=== PATIENT | male | born 1970 | race Caucasian/White ===

== ENCOUNTER 2024-01-23 22:49 | Inpatient (IN) | payer OTHER, SELFPAY ==
[2024-01-23 19:36] VITALS: BP 167/108
[2024-01-23 20:06] LABS: APTT 27.1 Sec (23.4-35.0); PT 13.2 Sec (11.4-14.6)
[2024-01-23 20:24] LABS: ALT (SGPT) 24 U/L (0-50); AST (SGOT) 27 U/L (17-59); Albumin 4.4 g/dl (3.5-5.0); Alkaline Phosphatase 62 U/L (38-126); Blood Urea Nitrogen 24 mg/dl (9-20); Calcium 9.4 mg/dl (8.4-10.2); Carbon Dioxide 26 mmol/L (22-30); Chloride 102 mmol/L (98-107); Glucose 103 mg/dl (70-99); Potassium 4.5 mmol/L (3.5-5.1); Sodium 140 mmol/L (135-145); Total Bilirubin 0.3 mg/dl (0.2-1.3); Total Protein 6.5 g/dl (6.3-8.2); eGFR > 60.00
[2024-01-23 20:57] LABS: % Basophils 0.3 % (0-2); % Eosinophils 1.4 % (0-6); % Immature Granulocytes 0.5 % (0-0.5); % Lymphocytes 24.6 % (20.5-51.1); % Monocytes 6.3 % (1.7-9.3); % Neutrophils 66.9 % (42.2-75.2); Absolute Eosinophils 0.1 10^3/uL (0-0.7); Absolute Lymphocytes 2.1 10^3/uL (1.2-3.4); Absolute Monocytes 0.5 10^3/uL (0.1-0.6); Absolute Neutrophils 5.8 10^3/uL (1.4-6.5); Hematocrit 31.3 % (39.0-52.0); Hemoglobin 11.6 g/dL (13.0-18.0); Mean Corp Hgb Conc. 37.1 g/dL (33.0-37.0); Mean Corpuscular Hgb 31.6 pg (27.0-31.0); Mean Corpuscular Volume 85.3 fL (80.0-94.0); Mean Platelet Volume 9.8 fL (7.4-10.4); Nucleated Red Blood Cells % 0 % (-); Platelet Count 209 10^3/uL (130-400); Red Blood Cell Count 3.67 10^6/uL (4.70-6.10); Red Cell Dist. Width 12.1 % (11.5-14.5); White Blood Cell Count 8.6 10^3/uL (4.8-10.8)
[2024-01-23 21:17] VITALS: BMI 31.3
--- NOTE | 2024-01-23 21:24 | ED.GENMED ---
History of Present Illness
General
Chief Complaint: Rectal Bleeding
Source: patient
Exam Limitations: none
Time Seen by Provider: 01/23/24 20:56
Nursing documentation reviewed up to this point in time: agreed with
History of Present Illness
History of Present Illness:
Patient to ED with complaint of passing black tarry stools since this AM. Has had muliple episodes. Denies any abdominal pain. No prior history of same. Brought self to ED for eval. PMH of diverticulitis. Dx with paraganglioma in 2018. Treated
at [facility]. States she had removal of tumor, bowel resection, temporary ileostomy. 2021 dx with adrenal gland cancer which was surgically treated at [facility]. He has had no issues since.
Past History
Past History
ED Past Medical History: Asthma, Cancer (paraganglioma, adrenal ), HTN, Hypercholesterolemia, Psychiatric (Anxiety, alcohol abuse, depression, suicidal ideation, suicide attempt) and Other (Diverticulitis)
ED Past Surgical History: Bowel resection
Social History
Tobacco: Former smoker
Alcohol: Former
Drug: Other (Recovering from opiate addiction)
Living: with family
Employment: Employed
Review of Systems
Review of Systems
Allergies reviewed?: Yes
All Other Systems: ROS reviewed and negative except as documented in HPI and ROS
Constitutional: Reports no symptoms
EENT: Reports no symptoms
Respiratory: Reports no symptoms
Cardiac: Reports no symptoms
ABD/GI: Reports black stools
: Reports no symptoms
Musculoskeletal: Reports no symptoms
Skin: Reports no symptoms
Neurological: Reports no symptoms
Psychiatric: Reports no symptoms
Phy Exam
General Physical Exam
General Presentation: well appearing and no apparent distress
General age: appears stated age
General Skin: warm and dry
General Habitus: normal
Gastrointestinal Exam
Gastrointestinal Exam: normal bowel sounds, non tender, soft, no organomegaly, no pulsatile mass, non distended and no cva tenderness
Rectal Exam: normal external exam, normal sphincter tone and soft stool
Stool: black
Guaiac Status: positive
Musculoskeletal Exam
Musculoskeletal Exam: full ROM and neuro vasc intact
Skin Exam
Skin Exam: normal color, warm/dry and no rash
Psychiatric Exam
Psychiatric Exam: normal mood/affect
Course
Orders/Labs/Results
Orders:
Orders
01/23/24 19:39
EKG [Electrocardiogram (*1)] Urgent
Reason for Study: Tachycardia
01/23/24 19:40
EKG- Treatment ONCE
01/23/24 19:49
Type+Screen Urgent
Complete Blood Count/With Diff Urgent
Comprehensive Metabolic Panel Urgent
PTT Urgent
Prothrombin Time Urgent
01/23/24 21:19
0.9% Sodium Chloride 1000 ml [Nss] 1,000 ml IV BOLUS
Pantoprazole [Protonix IV] 80 mg IV NOW STA
01/23/24 21:29
ABO2 Urgent
BBK Wristband Number:
Associate notified that ABO2 has been ordered: [id number]
Date: 01/23/24
Time: 20:07
Airport Duty Manager ID: [id number]
01/23/24 22:23
Admit/Transfer Patient As Directed
Co-Sign Provider:
Level of Care: Inpatient admission
Assign to:: Telemetry
Physician / Group: Patrick Park
Diagnosis: GI Bleed
Reason for Telemetry: Arrhythmia
Date to Stop Telemetry: 01/26/24
Time to Stop Telemetry: 11:00
Reason for Hospitalization: GI Bleed
Expected length of stay greater than two midnights?: Yes
ELOS- Estimated Length of Stay in days: 3
I certify the patient meets the requirements for IP care: Yes
01/23/24 22:24
PRN Pain Medication Management As Directed
May give lesser potent ordered pain med per pt: Yes
preference::
Protocol:: Medication orders for pain may be administered in a
manner that supports deferring to patient preference
when the pt is:
- Requesting an ordered lesser potent pain medication.
Least to most potent pain medications are defined
as: acetaminophen < NSAID < tramadol < opioids
(morphine, oxycodone, hydromorphone).
- Requesting a lesser dose of the same medication IF
ORDERED.
- Requesting a less intrusive route of administration
if both routes are prescribed by the provider (PO <
IV).
01/23/24 22:26
Code Status As Directed
Resuscitation Status: Full Code
01/26/24 11:00
DC Protocol for Telemetry ONCE
Abnormal Lab Results
01/23/24
19:49
RBC 3.67 L 10^6/uL
(4.70-6.10)
Hgb 11.6 L g/dL
(13.0-18.0)
Hct 31.3 L %
(39.0-52.0)
MCH 31.6 H pg
(27.0-31.0)
MCHC 37.1 H g/dL
(33.0-37.0)
BUN 24 H mg/dl
(9-20)
Glucose 103 H mg/dl
(70-99)
01/23/24 19:49
01/23/24 19:49
Vital Signs
Initial and Last Documented VS:
Initial Vital Signs
Temp Pulse Resp BP Pulse Ox
99 F 111 16 167/108 98
01/23/24 19:36 01/23/24 19:36 01/23/24 19:36 01/23/24 19:36 01/23/24 19:36
Last Documented Vital Signs
Temp Pulse Resp BP Pulse Ox
99 F 90 18 117/91 98
01/23/24 19:36 01/23/24 22:30 01/23/24 22:30 01/23/24 22:28 01/23/24 22:30
MDM/Problems Addressed
Differential Diagnosis Includes:
Patient to ED wt complaint of black tarry stools since this AM. No prior history of same. Denies any alcohol use, denies ibuprofen use. No prior history of same. Rectal exam confirms heme pos stool. Labs reviewed, Hgb/hct stable. WIll admit
to hospitalist service. IVF, protonix initieated in ED.
*Critical Care Note
Total Time (30-74mins, 75-104mins- exclusive of procedures): Not Applicable
ED Attending Note
-
Portions of this chart may have been created with voice recognition software.� Occasional wrong word or��sound alike� substitutions may have occurred due to the inherent limitations of voice recognition software.
Discharge Plan
Departure
Patient Disposition: Admit
Date of Disposition: 01/23/24
Time of Disposition: 21:35
Presentation/result/management discussed w/ accepting MD/DO: Hospitalist
Patient with high blood pressure during this ER visit?: No
Condition: Fair
Covid-19: Not Applicable
Discharge Problem:
GI bleeding
Interventions
Interventions:
*Risk Screen - Suicide Last Done: 01/23/24 19:36
*General Assessment Last Done: 01/23/24 21:17
*Neglect/Abuse Screening Last Done: 01/23/24 19:36
IE-Yhntgc-Korupmlcce Assessment Last Done: 01/23/24 21:17
ED- Cardiac Assessment Last Done: 01/23/24 21:17
ED- Pulmonary Assessment Last Done: 01/23/24 21:17
[2024-01-23 21:30] VITALS: BP 142/97
--- NOTE | 2024-01-23 21:40 | HPS.HSE ---
Family Physician
-
Family Physician:
Chief Complaint
-
Rectal bleeding
History of Present Illness
Patient is a 53-year-old male with past medical history significant for asthma, HTN, tumor resection [facility] in 2018 with colon resection and temporary ileostomy. Patient reports he woke this morning and had BM first thing at approximately 0630 where
he states he had a large 'pasty' dark bowel movement with fresh blood in water. He states he has had over 8 bowel movements today all similar. He denies any associated symptoms including, cough, shortness of breath, chest pain, abdominal discomfort,
urinary symptoms, nausea or vomiting. Patient denies any gastric reflux.
Medical History
Past Medical History
Past Medical History: Reports Other
Additional Past Medical History:
Diverticulitis
Paraganglioma
Asthma
HTN
Past Surgical History: Reports Other
Additional Past Surgical History:
Paraganglioma with colon resection and temporary ileostomy
Adrenalectomy
Social History
Tobacco: Former Smoker
Alcohol: Former
Drug: Former User
Personal: Single
Employment: Employed
Family History
Family History: Other (Pancreatic Cancer, Lung Cancer, pituitary gland tumor)
Allergies / Home Medications
Allergies reflects when Allergies were last updated in [facility].
Home Medications with original date entered in [facility]
Allergy/Medication List:
Allergies
Allergy/AdvReac Type Severity Reaction Status Date / Time
shellfish derived Allergy Unknown Verified 01/23/24 19:36
Home Medications Table - record
�Medication �Instructions �Recorded �Confirmed
ascorbic acid (vitamin C) 500 mg 1,000 mg PO DAILY 10/03/17 01/23/24
tablet (Vitamin C)
cholecalciferol (vitamin D3) 25 1,000 units PO DAILY 10/03/17 01/23/24
mcg (1,000 unit) tablet
montelukast 10 mg tablet 10 mg PO DAILY 10/03/17 01/23/24
Lactobac no.2-Bifidobac no.1-S. 1 cap PO DAILY 01/23/24 01/23/24
thermo 112.5 billion cell capsule
(Visbiome)
albuterol sulfate 90 mcg/actuation 2 puff inhalation R Q6HPRN PRN sob 01/23/24 01/23/24
aerosol inhaler
budesonide-formoterol HFA 80 2 puff inhalation R BIDPRN PRN 01/23/24 01/23/24
mcg-4.5 mcg/actuation aerosol change in season
inhaler (Symbicort)
calcium carbonate 500 mg PO DAILY 01/23/24 01/23/24
diphenhydramine 25 1 tab PO HSPRN PRN sleep 01/23/24 01/23/24
mg-acetaminophen 500 mg tablet
(Tylenol PM Extra Strength)
magnesium oxide 400 mg PO DAILY 01/23/24 01/23/24
omega 1-ttv-lsn-fish oil 1,000 mg 1 cap PO DAILY 01/23/24 01/23/24
(120 mg-180 mg) capsule (Fish Oil)
sildenafil 50 mg tablet 50 mg PO DAILYPRN PRN ed 01/23/24 01/23/24
therapeutic multivitamin 1 tab PO DAILY 01/23/24 01/23/24
vitamin B complex 1 tab PO DAILY 01/23/24 01/23/24
vitamin E 268 mg (400 unit) capsule 268 mg PO DAILY 01/23/24 01/23/24
Review of Systems
-
History Source: Patient
Constitutional: Reports No Symptoms
EENT: Reports No Symptoms
Respiratory: Reports No Symptoms
Cardiac: Reports No Symptoms
Abdomen/GI: Reports Bloody Stools
: Reports No Symptoms
Musculoskeletal: Reports No Symptoms
Skin: Reports No Symptoms
Neurological: Reports No Symptoms
Endocrine: Reports No Symptoms
Hematologic/Lymphatic: Reports No Symptoms
Psych: Reports No Symptoms
Physical Exam
Vital Signs
Vital Signs
Temp Pulse Resp BP Pulse Ox
99 F 89 18 142/97 98
01/23/24 19:36 01/23/24 21:30 01/23/24 21:30 01/23/24 21:30 01/23/24 21:30
Physical Exam
General: Well Developed, Well Nourished, No Apparent Distress, Comfortable and Conversant
HEENT: NormoCephalic, Moist mucous membranes, Atraumatic, PERRLA and Bronaugh Conjunctivae
Respiratory: Clear and Non Labored Respirations; No Wheezes, Rales, Rhonchi or Crackles
Cardiac: S1/S2 and Regular Rhythm; No Murmur, Rub or Gallop
Breast: Deferred by me
GI: Soft, Non Tender, Non Distended and Normal Bowel Sounds; No Organomegaly
Rectal: Hem Positive
Genito-urinary: Deferred by me
Musculoskeletal: No Clubbing, No Cyanosis, No Edema and Normal Gait & Station
Skin: Warm, Dry and IV/Catheter Site; No Rash
Neuro: Awake, Alert, AO x 3, Nonfocal/grossly intact and Cranial Nerves Intact
Hematologic/Lymphatic: No Lymphadenopathy
Psych: Calm and Intact Judgment/Insight
Laboratory Results
-
01/23/24 19:49
01/23/24 19:49
Laboratory Results
PT 13.2 Sec (11.4-14.6) 01/23/24 19:49
INR 1.00 01/23/24 19:49
APTT 27.1 Sec (23.4-35.0) 01/23/24 19:49
Total Bilirubin 0.3 mg/dl (0.2-1.3) 01/23/24 19:49
AST 27 U/L (17-59) 01/23/24 19:49
ALT 24 U/L (0-50) 01/23/24 19:49
Alkaline Phosphatase 62 U/L (38-126) 01/23/24 19:49
Data Reviewed
-
Lab Data: Labs Reviewed by me
Impression/Plan
-
IMPRESSION/PLAN:
#GI Bleed/Diverticulitis/Paraganglioma tumor removed 2017
- Admit to telemetry
- NPO Sips of clears
- Protonix BID
- T&S, H&H q4H
#Asthma
- Continue albuterol PRN
Full Code
DVT Px: SCDs
[2024-01-23] MEDS: NSS 1000 IV (22:20)
[2024-01-23] MEDS: PROTONIX IV 80 MG IV (22:23)
--- NOTE | 2024-01-23 22:24 | W.PN.UPDATE ---
Update Note
Progress Note Update
Patient seen in conjunction with MACHINE OPERATOR HAY STACKER. I agree with the findings on history physical. I concur with the assessment and plan unless stated otherwise.
This is a 53-year-old male with past medical history of asthma, hypertension, diverticulitis status post bowel resection and reanastomosis, history of paraganglioma status post total resection. He also has a history of right adrenalectomy for
pheochromocytoma (family history, + genetics MEN gene?) presenting to the emergency department with rectal bleeding. Reports acute onset of dark tarry stools 1 arousable this a.m. Patient was getting some dental work when he had a bowel movement
showing pasty black stool with surrounding blood. He reports multiple BMs today up to 5 times a month. Did some associated gas but no abdominal pain nausea or vomiting. He denies feeling dizzy or lightheaded. He denies any rectal pain.
Patient is not on any anticoagulants. He denies any recent heavy use of NSAIDs. He denies any recent use of antibiotics. He has no fevers or chills. He has no recent diarrhea.
In the emergency department the patient arrived normotensive at 140/90, he was tachycardic to the 110s, temp was 99. ECG showed a normal sinus rhythm with a rate of 88. Hemoglobin was 11.6 with a white count of 8.6. Platelet count was normal INR
was normal. Electrolytes are within normal limits.
On exam the patient is nontoxic in appearance, hemodynamic stable. Abdominal exam is benign without any tenderness rebound or guarding. Rectal exam with black heme positive stool. Examination of the stool appears to be dark marooned and gel-like
(clot) but not midnight black or tarry. Suspect possibly diverticular bleed versus upper GI bleed. No symptoms of dyspepsia, reflux. H/O diverticulitis so likely has diverticuli that can bleed.
GI Bleed - hd stable but tachycardia, hgb stable
- admit to telemetry
-type and screen, h/h q 8, transfuse Hgb < 8
- NPO, Maintenance fluids with LR
- ppi iv bid for now
- CT GI bleed if abdominal pain, Hgb drop significantly or patient has bright red rectal bleeding
- GI consultation
- Patient states that he requires testing for plasma metanephrines and catecholamines prior to invasive procedures such as endoscopy
DVT PPX - SCD
Code Status - Full Code
[2024-01-23 22:28] VITALS: BP 117/91
[2024-01-23 23:00] VITALS: BP 132/83
[2024-01-24] VITALS (10 sets, daily range): BP systolic 102–159; BP diastolic 69–96; BMI 30.6
[2024-01-24] MEDS: BENADRYL 12.5 MG IV ×2 (00:37→20:46)
[2024-01-24 02:13] LABS: Hematocrit 26.8 % (39.0-52.0); Hemoglobin 10.1 g/dL (13.0-18.0)
[2024-01-24 05:49] LABS: Hematocrit 27.4 % (39.0-52.0); Hemoglobin 10.2 g/dL (13.0-18.0); Mean Corp Hgb Conc. 37.2 g/dL (33.0-37.0); Mean Corpuscular Hgb 31.1 pg (27.0-31.0); Mean Corpuscular Volume 83.5 fL (80.0-94.0); Mean Platelet Volume 9.7 fL (7.4-10.4); Platelet Count 150 10^3/uL (130-400); Red Blood Cell Count 3.28 10^6/uL (4.70-6.10); White Blood Cell Count 5.6 10^3/uL (4.8-10.8)
[2024-01-24 06:07] LABS: Blood Urea Nitrogen 21 mg/dl (9-20); Calcium 8.8 mg/dl (8.4-10.2); Carbon Dioxide 27 mmol/L (22-30); Chloride 106 mmol/L (98-107); Estimated Creatinine Clearance > 125 ml/min; Glucose 96 mg/dl (70-99); Potassium 4.1 mmol/L (3.5-5.1); Sodium 141 mmol/L (135-145); eGFR > 60.00
[2024-01-24] MEDS: PROTONIX IV 40 MG IV ×2 (07:47→20:46)
[2024-01-24] MEDS: SINGULAIR 10 MG PO (07:47)
[2024-01-24] MEDS: NSS (PRESERVATIVE FREE) 10 ML IV ×2 (07:50→20:46)
--- NOTE | 2024-01-24 08:18 | W.PN.HOSP.TC ---
Today's Communication/Plan
-
see PN
Assessment / Plan
Assessment / Plan
53yo M with PMHx of paraganglioma (removed), pheochromocytoma, diverticulosis s/p colon resection and reversal of colostomy in 2018, COPD came after multiple episodes of black stool, later found FOBT positive. On rectal had clots with maroon colored
stool. Admitted for GIB. No other abdominal or systemic symptoms
A/P:
#Acute blood loss anemia 2/2 GIB
PPI
two large bore IV, serial H&H and transfuse as needed
GI eval
Avoid antiplatelets, anticoag, NSAIDs
#Hx of diverticulosis
#Hx of paraganglioma
#Hx of pheochromocytoma
cont follow up with already established specialists in [facility]
DVT ppx SCDs
Full code
I have spent at least 58min reviewing chart, test results, communication with consultants and direct patient care
Anticipated Discharge: 24 - 48 hours
Subjective/Interval History
-
Date of Service: January 24, 2024
Objective Data
-
Labs:
Laboratory Results
01/23/24 01/24/24 01/24/24
19:49 02:07 05:12
WBC 8.6 5.6
Hgb 11.6 L 10.1 L 10.2 L
Hct 31.3 L 26.8 L 27.4 L
Plt Count 209 150 D
Sodium 140 141
Potassium 4.5 4.1
Chloride 102 106
Carbon Dioxide 26 27
BUN 24 H 21 H
Creatinine 0.9 0.7
Glucose 103 H 96
Calcium 9.4 8.8
Total Bilirubin 0.3
AST 27
ALT 24
Alkaline Phosphatase 62
01/24/24 01/24/24 01/24/24
10:00 14:00 18:00
WBC
Hgb Pending Pending Pending
Hct Pending Pending Pending
Plt Count
Sodium
Potassium
Chloride
Carbon Dioxide
BUN
Creatinine
Glucose
Calcium
Total Bilirubin
AST
ALT
Alkaline Phosphatase
01/24/24
22:00
WBC
Hgb Pending
Hct Pending
Plt Count
Sodium
Potassium
Chloride
Carbon Dioxide
BUN
Creatinine
Glucose
Calcium
Total Bilirubin
AST
ALT
Alkaline Phosphatase
Vital Signs:
Vital Signs
Temp Pulse Resp BP Pulse Ox
99 F 82 10 102/69 99
01/23/24 19:36 01/24/24 06:15 01/24/24 06:15 01/24/24 02:00 01/24/24 00:05
Review of Systems
-
History Source: Patient
All other systems: Reviewed and negative
Physical Exam
-
General: No Apparent Distress
HEENT: Normocephalic
Respiratory: Clear to Auscultation
Cardiac: Regular Rhythm
GI: Soft, Nontender and Nondistended
Rectal: Black
Genito-urinary: No Costovertebral Tender
Musculoskeletal: No Clubbing, No Cyanosis and No Edema
Skin: Warm
Neuro: Awake, Alert, Oriented and AO x 3
Psych: Calm
[2024-01-24 11:42] LABS: Hematocrit 28.8 % (39.0-52.0); Hemoglobin 10.7 g/dL (13.0-18.0)
[2024-01-24] MEDS: TYLENOL 650 MG PO ×2 (11:45→20:46)
--- NOTE | 2024-01-24 14:53 | CM ---
Patient seen at bedside. Patient in ED. Patient stated that he lives alone in a 2nd floor apartment. Patient states that he has no DME and his PCP is Dr. Card. Patient uses the [facility] in [place]. Patient stated that he does not anticipate any VN
or SNF needs at discharge. CM will continue to follow for discharge planning needs.
Plan; home with no needs vs home with VN
--- NOTE | 2024-01-24 14:59 | CON.GI ---
Addendum entered and electronically signed by Ju Castro Do, MD 01/24/24 16:35:
I saw and examined the patient.
The LOAD DISPATCHER LOCAL's note was reviewed and I agree with the note.
Comment: Kevin is a 53yo M with h/o asthma, diverticulitis and paraganglioma and pheo s/p resection in 2018 then 2021 who presents with painless maroon colored stools. No abd pain, nausea/vomiting. Vitals stable, exam NTTP, rectal with maroon
colored stools. [place] present. Labs reviewed -01-16-10
Impression
- Painless hematochezia
Ddx includes diverticular or ulcer
- Recurrent diverticulitis
- H/o paraganglioma and pheo s/p resection
- HTN
- Obesity
Recommendation
- Serial H/H
- CLD NPO at [place] for EGD tomorrow
- D/w Dr Chun's team at [facility] and ok to proceed without further catecholamine testing
- C/w Protonix 40mg IV BID
- Monitor stool output
Will follow with you
Original Note:
Consultation
-
Date/Time Consultation Requested: 01/24/24 1500
Date/Time Consultation Performed: 01/24/24 1500
Requesting Provider: Anatoliy Calixto MD
Performing Provider: IRVIN Araiza, Ju Baer MD
Reason for Consultation: GI bleeding
Medical History
Chief Complaint / HPI
History of Present Illness:
Pt is a 53yo with hx Asthma, MVP, HTN, diverticulitis with prior colon resection, ileostomy then reversal, and same time noted paraganglioma with resection. He did recall issue with blood pressure due to catecholamine issues at that time. He was
doing well following with Dr. Lissa Chun at [facility] with rise in catacholamine levels in 2021 then noted pheochromocytoma in adrenal gland with resection. He has been doing well and due to go on vacation on Sunday then noted with onset of dark
maroon stools on 01/22 with about 6 small and larger soft formed stools. On admission noted with hbg 11.6 with minimal drop to 10.7 since admission with BUN 24. He denies NSAID or anticoagulation use. No prior EGD and last colonoscopy 2017
Cookie- - Preparation of the colon was fair.- Stricture in the sigmoid colon.- Diverticulosis in the sigmoid colon and in the descending colon The examination was otherwise normal No specimens collected.
Pt denies dizziness, lightheadedness, dysphagia, GERD, nausea, vomiting, abdominal pain, diarrhea, or constipation.
Past Medical History
Past Medical History: Asthma, HTN, Valvular Disease (MVP) and Other (diverticulitis, paraganglioma with colon resection and temporary ileostomy, prior substance abse )
Social History
Tobacco: Former Smoker
Alcohol: None
Drug: Former User (sober for 21 years)
Living: Alone
Employment: Employed (mental health worker)
Family History
Family History: Reviewed & Not Pertinent
Allergies / Home Medications
Allergy/AdvReac Type Severity Reaction Status Date / Time
shellfish derived Allergy Unknown Verified 01/23/24 19:36
�Medication �Instructions �Recorded
ascorbic acid (vitamin C) 500 mg 1,000 mg PO DAILY Supplement 10/03/17
tablet (Vitamin C)
cholecalciferol (vitamin D3) 25 1,000 units PO DAILY Supplement 10/03/17
mcg (1,000 unit) tablet
montelukast 10 mg tablet 10 mg PO DAILY Lung/Breathing 10/03/17
Issues
Lactobac no.2-Bifidobac no.1-S. 1 cap PO DAILY probiotic 01/23/24
thermo 112.5 billion cell capsule
(Visbiome)
albuterol sulfate 90 mcg/actuation 2 puff inhalation R Q6HPRN PRN sob 01/23/24
aerosol inhaler
budesonide-formoterol HFA 80 2 puff inhalation R BIDPRN PRN 01/23/24
mcg-4.5 mcg/actuation aerosol change in season
inhaler (Symbicort)
calcium carbonate 500 mg PO DAILY Supplement 01/23/24
diphenhydramine 25 1 tab PO HSPRN PRN sleep 01/23/24
mg-acetaminophen 500 mg tablet
(Tylenol PM Extra Strength)
magnesium oxide 400 mg PO DAILY Supplement 01/23/24
omega 5-txi-fkh-fish oil 1,000 mg 1 cap PO DAILY Supplement 01/23/24
(120 mg-180 mg) capsule (Fish Oil)
sildenafil 50 mg tablet 50 mg PO DAILYPRN PRN ed 01/23/24
therapeutic multivitamin 1 tab PO DAILY Supplement 01/23/24
vitamin B complex 1 tab PO DAILY Supplement 01/23/24
vitamin E 268 mg (400 unit) capsule 268 mg PO DAILY Supplement 01/23/24
Review of Systems
-
History Source: Patient
Constitutional: Reports No Symptoms
EENT: Reports No Symptoms
Respiratory: Reports No Symptoms
Cardiac: Reports No Symptoms
Abdomen/GI: Reports Bloody Stools (burgundy red/black stools)
: Reports No Symptoms
Musculoskeletal: Reports No Symptoms
Skin: Reports No Symptoms
Neurological: Reports No Symptoms
Endocrine: Reports No Symptoms
Hematologic/Lymphatic: Reports No Symptoms
Vital Signs
Temp Pulse Resp BP Pulse Ox
98.2 F 75 12 115/83 98
01/24/24 11:46 01/24/24 11:46 01/24/24 11:46 01/24/24 11:46 01/24/24 10:25
Physical Exam
Exam
General: Well Developed, Well Nourished and No Apparent Distress
HEENT: Normocephalic and Anicteric
Respiratory: Clear
Cardiac: Regular Rhythm
GI: Soft, Non Tender and Non Distended
Rectal: Other (stool in bathroom dark burgundy/black formed )
Musculoskeletal: No Clubbing and No Cyanosis
Neuro: Awake, Alert and AO x 3
Psych: Calm
Results
WBC 5.6 10^3/uL (4.8-10.8) 01/24/24 05:12
Hgb 10.7 g/dL (13.0-18.0) L 01/24/24 11:18
Hct 28.8 % (39.0-52.0) L 01/24/24 11:18
MCV 83.5 fL (80.0-94.0) 01/24/24 05:12
Plt Count 150 10^3/uL (130-400) D 01/24/24 05:12
Absolute Neuts (auto) 5.8 10^3/uL (1.4-6.5) 01/23/24 19:49
PT 13.2 Sec (11.4-14.6) 01/23/24 19:49
INR 1.00 01/23/24 19:49
APTT 27.1 Sec (23.4-35.0) 01/23/24 19:49
Sodium 141 mmol/L (135-145) 01/24/24 05:12
Potassium 4.1 mmol/L (3.5-5.1) 01/24/24 05:12
Chloride 106 mmol/L (98-107) 01/24/24 05:12
Carbon Dioxide 27 mmol/L (22-30) 01/24/24 05:12
BUN 21 mg/dl (9-20) H 01/24/24 05:12
Creatinine 0.7 mg/dL (0.7-1.3) 01/24/24 05:12
Calcium 8.8 mg/dl (8.4-10.2) 01/24/24 05:12
Total Bilirubin 0.3 mg/dl (0.2-1.3) 01/23/24 19:49
AST 27 U/L (17-59) 01/23/24 19:49
ALT 24 U/L (0-50) 01/23/24 19:49
Alkaline Phosphatase 62 U/L (38-126) 01/23/24 19:49
Diagnostic Image Results:
Prior GI Procedures:
EGD: none
Colonoscopy: 2017 Cookie- - Preparation of the colon was fair.- Stricture in the sigmoid colon.- Diverticulosis in the sigmoid colon and in the descending colon The examination was otherwise normal No specimens collected.
Assessment / Plan
-
Pt is a 53yo with hx Asthma, MVP, HTN, diverticulitis with prior colon resection, ileostomy then reversal, and same time noted paraganglioma with resection. He did recall issue with blood pressure due to catecholamine issues at that time. He was
doing well following with Dr. Lissa Chun at [facility] with rise in blood levels in 2021 then noted pheochromocytoma in adrenal gland with resection. He has been doing well and due to go on vacation on Sunday then noted with onset of dark maroon
stools on 01/22 with about 6 small and larger soft formed stools. On admission noted with hbg 11.6 with minimal drop to 10.7 since admission with BUN 24. He denies NSAID or anticoagulation use. No prior EGD and last colonoscopy 2017bari- -
Preparation of the colon was fair.- Stricture in the sigmoid colon.- Diverticulosis in the sigmoid colon and in the descending colon The examination was otherwise normal No specimens collected.
02/2023- epinephrine 62, norepinephrine 1197, dopamine <130, metanephrine <0.10, normetanephrine 0.36
-rectal bleeding
-anemia
-hx paraganglioma 2018 with resection and pheochromocytoma 2021 with adrenal resection
other med problems:
-diverticulitis with resection, ostomy then reversal
-Asthma
-MVP
-HTN
PLAN:
etiology of bleeding related to upper (PUD, ectasia, mass) lower (right colon) vs SB bleed vs other
plan for EGD in AM
if neg consider colon but pt concern with issue with BP last colonoscopy
I reviewed text pt with communication with at [facility] with clearance for GI testing at this time
NPO in AM
PPI BID
pt reviewed will likely leave tomorrow as due to go on trip to [place] -- I advised should be aware of nearby hospital of continued issues and return if increased bleeding, pain, dizziness or problems
will need follow up at [facility] when returns
-
-
Thank you for consultation and allowing me to participate in the patient's care. Please call the field education coordinator GI physician during the after hours with any questions or concerns.
--- NOTE | 2024-01-24 18:34 | PTCARENOTE ---
patient arrived from ER to room via stretcher, denies pain, reports no stool currently, independent, vss, oriented to room and use of call marin, will continue to monitor.
[2024-01-24 20:25] LABS: Hematocrit 32.3 % (39.0-52.0); Hemoglobin 11.8 g/dL (13.0-18.0)
[2024-01-25] VITALS (7 sets, daily range): BP systolic 101–133; BP diastolic 73–89; BMI 30.3
[2024-01-25 06:08] LABS: Hematocrit 30.1 % (39.0-52.0); Hemoglobin 11.1 g/dL (13.0-18.0); Mean Corp Hgb Conc. 36.9 g/dL (33.0-37.0); Mean Corpuscular Hgb 32.1 pg (27.0-31.0); Mean Platelet Volume 9.6 fL (7.4-10.4); Platelet Count 174 10^3/uL (130-400); Red Blood Cell Count 3.46 10^6/uL (4.70-6.10); White Blood Cell Count 5.7 10^3/uL (4.8-10.8)
[2024-01-25 07:08] LABS: Blood Urea Nitrogen 14 mg/dl (9-20); Calcium 9.3 mg/dl (8.4-10.2); Carbon Dioxide 28 mmol/L (22-30); Chloride 102 mmol/L (98-107); Estimated Creatinine Clearance > 125 ml/min; Glucose 95 mg/dl (70-99); Sodium 140 mmol/L (135-145); eGFR > 60.00
[2024-01-25] MEDS: SINGULAIR 10 MG PO (10:23)
[2024-01-25] MEDS: PROTONIX IV 40 MG IV (10:24)
[2024-01-25] MEDS: NSS (PRESERVATIVE FREE) 10 ML IV (10:25)
--- NOTE | 2024-01-25 10:50 | CM ---
Patient for possible discharge today. Patient plans to drive self home. No needs for discharge supports at this time. CM will continue to follow for discharge planning needs.
Plan; home with no needs anticipated.
[2024-01-25] MEDS: NSS 250 IV (11:57)
[2024-01-25] MEDS: OMNIPAQUE 50 ML PO (12:05)
--- NOTE | 2024-01-25 14:06 | W.PN.HOSP.TC ---
Today's Communication/Plan
-
since more bloody movement - GI to reeval
CT abd/pelvis
Assessment / Plan
Assessment / Plan
53yo M with PMHx of paraganglioma (removed), pheochromocytoma, diverticulosis s/p colon resection and reversal of colostomy in 2018, COPD came after multiple episodes of black stool, later found FOBT positive. On rectal had clots with maroon colored
stool. Admitted for GIB. No other abdominal or systemic symptoms
A/P:
#Acute blood loss anemia 2/2 GIB
PPI
two large bore IV, serial H&H and transfuse as needed
GI eval: s/p EGD on 01/25/24 without signs of bleeding
Avoid antiplatelets, anticoag, NSAIDs
CT abd due to Hx of extensive abdominal surgery - patient agreeable
#Hx of diverticulosis
#Hx of paraganglioma
#Hx of pheochromocytoma
cont follow up with already established specialists in [facility]
DVT ppx SCDs
Full code
I have spent at least 58min reviewing chart, test results, communication with consultants and direct patient care
Anticipated Discharge: Within 24 hours
Subjective/Interval History
-
Date of Service: January 25, 2024
Objective Data
-
Labs:
Laboratory Results
01/25/24
05:49
WBC 5.7
Hgb 11.1 L
Hct 30.1 L
Plt Count 174
Sodium 140
Potassium 4.0
Chloride 102
Carbon Dioxide 28
BUN 14
Creatinine 0.7
Glucose 95
Calcium 9.3
Vital Signs:
Vital Signs
Temp Pulse Resp BP Pulse Ox
98.2 F 73 18 115/78 97
01/25/24 10:28 01/25/24 10:28 01/25/24 10:28 01/25/24 10:28 01/25/24 10:28
Review of Systems
-
History Source: Patient
All other systems: Reviewed and negative
Abdomen/GI: Reports Bloody Stools
Physical Exam
-
General: No Apparent Distress
HEENT: Normocephalic
Respiratory: Clear to Auscultation
Cardiac: Regular Rhythm
GI: Soft, Nontender, Nondistended and Normal Bowel Sounds
Rectal: Red
Neuro: Awake, Alert, Oriented and AO x 3
Psych: Calm
--- NOTE | 2024-01-25 15:39 | W.PN.UPDATE ---
Update Note
Progress Note Update
spoke with patient s/p CT results not reviewed with patient but if stable pt would like to leave for vacation and not stay to completed GI work up inpatient with colonoscopy. Pt is aware of where hospitals are at [place] he is
visiting and to go to ER if increase bleeding or problems. I gave him GI contact information and sent message to office to arrange GI follow up. He is also consider follow up at [place]. Next step would be colonoscopy as stool initially dark
formed with some red around. He was noted with small amount red blood today but would need full colon with darker stools. All questions answered. Reviewed with Dr. Calixto.
--- NOTE | 2024-01-25 15:43 | W.DCSUMMARY ---
Discharge Summary
Discharge Data
Date of Admission: 01/23/24
Date of Discharge: 01/25/24
-
Pending Results: No
Hospital Course
53yo M with PMHx of paraganglioma (removed), pheochromocytoma, diverticulosis s/p colon resection and reversal of colostomy in 2018, COPD came after multiple episodes of black stool, later found FOBT positive. On rectal had clots with maroon colored
stool. Admitted for GIB. No other abdominal or systemic symptoms. CT abd did not show any acute findings. Hgb remained stable. Had one more BM with some sprinkles of the blood on hard stool. Suspect hemorrhoidal bleed. Patient has a vacation
arranged and since Hgb stable, amount of bleeding was minimal - reasonable for d/c with outpatient follow up as discussed with GI. Patient will follow as outpatient for colonoscopy. Medically stable and agreeable with d/c
I have spent at least 38min discharging the patient
Patient was managed for:
#Acute blood loss anemia 2/2 GIB
#Hx of diverticulosis
#Hx of paraganglioma
#Hx of pheochromocytoma
#Splenic cyst
#Diverticulosis w/o diverticulitis
#BPH - advised outpatient urology follow up
#Small L ingional hernia - follow up with PCP
Discharge Plan
-
Patient Disposition: Home (Routine Discharge)
Discharge Diagnosis/Procedures: GIB
Diet: Regular
Activity: As tolerated
Driving Restrictions: As prior to admission
Referrals:
Ju Baer MD [Active] - in one to two weeks (For colonoscopy)
Chhaya Card MD [Family Provider] - in one to two weeks (For benign prostate hyperplasia and small left inguinal hernia)
Prescriptions:
New
hydrocortisone acetate [Anusol-HC] 25 mg suppository
25 mg OK DAILY Qty: 12 0RF
pantoprazole 40 mg Tablet,Delayed Release (Dr/Ec)
40 mg PO BID Qty: 60 0RF
docusate sodium [Colace] 100 mg capsule
100 mg PO BID Qty: 60 0RF
Rx Instructions:
stop if developing diarrhea
Continued
ascorbic acid (vitamin C) [Vitamin C] 500 MG tablet
1,000 mg PO DAILY
montelukast 10 MG tablet
10 mg PO DAILY
cholecalciferol (vitamin D3) 1,000 UNITS tablet
1,000 units PO DAILY
sildenafil 50 mg Tablet
50 mg PO DAILYPRN PRN (Reason: ed)
therapeutic multivitamin Tablet
1 tab PO DAILY
calcium carbonate 500 mg calcium (1,250 mg) Tablet
500 mg PO DAILY
vitamin B complex Tablet
1 tab PO DAILY
albuterol sulfate 90 mcg/actuation Hfa Aerosol Inhaler
2 puff INHALATION R Q6HPRN PRN (Reason: sob)
diphenhydramine-acetaminophen [Tylenol PM Extra Strength] 25-500 mg Tablet
1 tab PO HSPRN PRN (Reason: sleep)
vitamin E 268 mg (400 unit) Capsule
268 mg PO DAILY
Visbiome 112.5 billion cell Capsule
1 cap PO DAILY
budesonide-formoterol [Symbicort] 80-4.5 mcg/actuation Hfa Aerosol Inhaler
2 puff INHALATION R BIDPRN PRN (Reason: change in season)
omega 5-dje-evh-fish oil [Fish Oil] 1,000 (120-180) mg Capsule
1 cap PO DAILY
magnesium oxide 400 mg magnesium Tablet
400 mg PO DAILY
Discharge Orders:
Discharge Patient (As Directed); Ordered 01/25/24
Ordered By: Anatoliy Calixto
Discharge Date and Time
Print Language: DOMINICAN
== END 2024-01-25 17:17 | disposition home or self-care (01) | DRG 378 ==
LOC: 3 WEST ACU 22:49
PROVIDERS: Internal Medicine; Nurse Practitioner Family; ADMITTING PHYSICIAN Internal Medicine; ATTENDING PHYSICIAN Internal Medicine; CONSULT PHYSICIAN Internal Medicine Gastroenterology; EMERGENCY PHYSICIAN Emergency Medicine; FAMILY PHYSICIAN Internal Medicine
PROC: 0DB68ZX Excision of Stomach, Via Natural or Artificial Opening Endoscopic, Diagnostic (ICD-10-PCS; 2024-01-25)
PROC: 0DB98ZX Excision of Duodenum, Via Natural or Artificial Opening Endoscopic, Diagnostic (ICD-10-PCS; 2024-01-25)
PROC: 0DB88ZX Excision of Small Intestine, Via Natural or Artificial Opening Endoscopic, Diagnostic (ICD-10-PCS; 2024-01-25)
DX: K57.31 Diverticulosis of large intestine without perforation or abscess with bleeding (principal); D62 Acute posthemorrhagic anemia; D44.7 Neoplasm of uncertain behavior of aortic body and other paraganglia; E78.00 Pure hypercholesterolemia, unspecified; F32.A Depression, unspecified; F41.9 Anxiety disorder, unspecified; E66.9 Obesity, unspecified; I10 Essential (primary) hypertension; F11.21 Opioid dependence, in remission; K44.9 Diaphragmatic hernia without obstruction or gangrene; K31.89 Other diseases of stomach and duodenum; N40.0 Benign prostatic hyperplasia without lower urinary tract symptoms; F10.11 Alcohol abuse, in remission; J44.89 Other specified chronic obstructive pulmonary disease; Z87.891 Personal history of nicotine dependence; Z91.51 Personal history of suicidal behavior; Z87.19 Personal history of other diseases of the digestive system; Z85.89 Personal history of malignant neoplasm of other organs and systems; Z90.49 Acquired absence of other specified parts of digestive tract; Z80.1 Family history of malignant neoplasm of trachea, bronchus and lung; Z80.0 Family history of malignant neoplasm of digestive organs; Z80.8 Family history of malignant neoplasm of other organs or systems; Z91.013 Allergy to seafood; Z68.30 Body mass index [BMI] 30.0-30.9, adult
CPT/HCPCS: 88305; 74177; 80048; 80053; 85014; 85018; 85025; 85027; 85610; 85730; 86850; 86900; 86901; 88342; 93005; 96361; 96374; 99284; Q9967

== ENCOUNTER → 2024-03-24 06:17 | Day surgery (SDC) | payer OTHER, SELFPAY | LOC: GI 06:17 | PROVIDERS: ATTENDING PHYSICIAN Internal Medicine | DX: K62.5 Hemorrhage of anus and rectum (principal); K57.30 Diverticulosis of large intestine without perforation or abscess without bleeding; K62.1 Rectal polyp; Z98.0 Intestinal bypass and anastomosis status | CPT/HCPCS: 45380; 88305 ==